=== PATIENT | female | born 1985 | race Caucasian/White ===

== ENCOUNTER 2017-05-21 12:47 | Outpatient (CLI) | payer OTHER | END 2017-05-21 12:48 | disposition home or self-care (01) | LOC: DTY/OP 12:47 | PROVIDERS: ATTEND Specialist | DX: Z01.818 Encounter for other preprocedural examination (principal); E66.01 Morbid (severe) obesity due to excess calories | CPT/HCPCS: 97802 ==

== ENCOUNTER 2017-06-25 12:00 | Inpatient (IN) | payer OTHER ==
--- NOTE | 2017-06-24 17:08 | HP ---
HISTORY OF PRESENT ILLNESS: The patient is a 32-year-old female who works at the [employer] lifting up to 75 pounds with team lifts, has been desired weight loss sustainable for some time. She has at tended our recent bariatric seminar and is interested in laparoscopic sleeve gastrectomy and well inf ormed about the merits, risks, benefits of both laparoscopic sleeve gastrectomy and Carlee-en-Y gastric bypass. She is 5 feet and 8, 227 pounds, 34.5 BMI. On 01/2017, she weighed 265 pounds and since at time has been running and changing her dietary habits and has lost from 265 to 227 pounds. Her go al is 150 pounds. She has been overweight most of her life and in preparation for enlisting into the army. She lost down to 150-155 pounds, but began having children, gained her weight back and now re alizes to enjoy sustainable weight loss efforts she will need surgical assistance. She has good expe ctations. Plan is to have her see our dietitian regarding education for perioperative and long-term dietary changes regarding sleeve gastrectomy. See the psychologist and obtain baseline laboratories. The patient has sleep apnea, has been tested to the and is on CPAP at night, compliant with that. She has chronic low back pain. There is no history of sciatica. She has had physical therapy , has had a recent MRI and has seen a therapist again. ALLERGIES: None. TOBACCO: Cessation in 2014. Her does not smoke. ALCOHOL: None. MEDICATIONS: None routinely. PAST SURGICAL HISTORY: Cholecystectomy in 2012, in 2010. PAST MEDICAL HISTORY: Sleep apnea, chronic low back pain, morbid obesity. She is followed by for primary care. PHYSICAL EXAMINATION: VITAL SIGNS: As stated above, on 01/2017, she weighed 265 pounds. Currently, she is 5 foot 8, 68 in ches, weight 227 pounds, 34.5 BMI, 110/73, 62, 98.6 degrees. HEAD, EARS, EYES, NOSE, AND THROAT: Unremarkable. LUNGS: Clear to auscultation. CARDIAC: Regular rate and rhythm without murmur or gallop. ABDOMEN: Soft, nontender, no masses. EXTREMITIES: Unremarkable, no venous stasis changes, no history of DVT, no history of anticoagulants use. Neurologically intact. No lymphadenopathy in neck, axillae or groins. No ankle edema. ASSESSMENT AND PLAN: 1. Morbid obesity, body mass index 35, 227 pounds, 5 foot 8 inches, she did weight 265 pounds in Jan. She has tried numerous other weight loss efforts without durable results. Plan is for laparo scopic sleeve gastrectomy after psychology evaluation and dietary counseling. She understands the ri sk and benefits of procedure and consents. 2. Sleep apnea. 3. Chronic low back pain.
[2017-06-25 10:55] VITALS: BMI 31.9
--- NOTE | 2017-06-26 08:19 | ADD-HP ---
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 She is attending our recent bariatric seminar, interested in laparoscopic sleeve gastre ctomy when informed about the risk and benefits as well as a bariatric options. She is 5 feet 8 inch es, 227 pounds, 34.5 BMI (35 BMI when I first saw her now lost down to 210 pounds, 31 BMI going throu gh our bariatric preoperative program). Her goal was 150 pounds. She has been overweight most of he r life and in preparation for enlisting to the [employer], she lost down to 150 to 155 pounds, but began rivera ving children, gained weight back and now realizes to enjoy sustainable weight loss however she will need surgical assistance. She has good expectations and has done well preoperatively. She has seen the psychologist and cleared deemed to be a very good patient with good outlook. The patient has sle ep apnea is on CPAP at night, compliant with that. She has less problems with that since losin g the weight in preparation for sleeve gastrectomy. She has chronic low back pain without history of sciatica. ALLERGIES: None. TOBACCO: Cessation in 2014. does not smoke. ALCOHOL: None. PAST SURGICAL HISTORY: Cholecystectomy in 2012, in 2010. PAST MEDICAL HISTORY: Sleep apnea, chronic back pain, morbid obesity. REVIEW OF SYSTEMS: Ten-point noncontributory. PHYSICAL EXAMINATION: VITAL SIGNS: Weight 210 pounds, blood pressure 109/77, pulse 66; 34.5 BMI initially, now 31.9 BMI. She has lost 17 pounds accounting for 20% of her excess body weight loss, beginning weight 227 pounds , 34 BMI, currently 210 pounds, 31 BMI. HEENT: Sclerae nonicteric. NECK: Without lymphadenopathy. LUNGS: Clear to auscultation. CARDIAC: Regular rate and rhythm without murmur, rub, or gallop. ABDOMEN: Soft, nontender, no hernias. EXTREMITIES: Unremarkable. No venous stasis changes in axillae or groins. SKIN: Nonjaundiced. NEUROLOGIC: Intact. No focal deficits. ASSESSMENT: Morbid obesity, successful preoperative weight loss. PLAN: Laparoscopic sleeve gastrectomy next week. She understands the risk and benefits and consents .
[2017-06-29] MEDS ORDERED: Ketorolac Tromethamine 30 MG/ML VIAL ONE (06:11)
[2017-06-29] MEDS ORDERED: Scopolamine 1.5 mg/72 hour Patch ONE (06:11)
[2017-06-29] MEDS ORDERED: Heparin 5,000 UNITS/ML VIAL ONE (06:11)
[2017-06-29] MEDS ORDERED: cefOXitin 2 GM in Sodium Chloride 0.9% 100 ML IVPB SCH (06:15)
[2017-06-29] MEDS ORDERED: Fentanyl 250 MCG/5 ML VIAL ONE (06:36)
[2017-06-29] MEDS ORDERED: Bupivacaine/Epinephrine 0.25% 30 ML VIAL ONE (06:45)
[2017-06-29] MEDS ORDERED: Midazolam HCl 2 mg/2 ml Vial ONE (07:02)
[2017-06-29] MEDS ORDERED: Ondansetron HCl/PF 4 MG/2 ML Vial IVP PRN ×2 (08:57→09:08)
[2017-06-29] MEDS ORDERED: Acetaminophen 325 MG/10.15 ML UDCUP PO PRN (08:57)
[2017-06-29] MEDS ORDERED: Dextrose 5% in Water 1,000 ML IV PRN (08:57)
[2017-06-29] MEDS ORDERED: hydrALAZINE 20 MG/ML VIAL SLOW IVP PRN (08:57)
[2017-06-29] MEDS ORDERED: Hydrocodone-Acetamin 15 ML UDCUP PO PRN (08:57)
[2017-06-29] MEDS ORDERED: diphenhydrAMINE 50 MG/ML VIAL IVP PRN (08:57)
[2017-06-29] MEDS ORDERED: Morphine 4 MG/ML VIAL SLOW IVP PRN ×2 (08:57)
[2017-06-29] MEDS ORDERED: Dextrose 50% Abboject 50 ML SYRINGE SLOW IVP PRN (08:57)
[2017-06-29] MEDS ORDERED: Acetaminophen 1,000 MG in Premix Bag 1 BAG IVPB PRN (09:05)
[2017-06-29] MEDS ORDERED: Meperidine HCl/PF 25 MG/ML VIAL SLOW IVP PRN (09:08)
[2017-06-29] MEDS ORDERED: Promethazine HCl 25 MG/ML VIAL IM PRN (09:08)
[2017-06-29] MEDS ORDERED: Promethazine HCl 25 MG/ML VIAL SLOW IVP PRN (09:08)
[2017-06-29] MEDS ORDERED: Fentanyl 100 MCG/2 ML VIAL ONE ×2 (09:37→10:24)
--- NOTE | 2017-06-29 11:05 | OP ---
DATE OF SERVICE: 06/29/2017 PREOPERATIVE DIAGNOSES: Morbid obesity, 220 pounds, 34 BMI recently presenting preoperative bariatri c surgery perforation, 210 pounds, 31 BMI; sleep apnea; low back pain, chronic. POSTOPERATIVE DIAGNOSES: Morbid obesity, 220 pounds, 34 BMI recently presenting preoperative bariatr ic surgery perforation, 210 pounds, 31 BMI; sleep apnea; low back pain, chronic. PROCEDURE: Laparoscopic sleeve gastrectomy, 36-Honduran bougie, staple line within 4 cm of the pylorus , completion upper endoscopy visualizing the pylorus. SURGEON: Dr. Odilon Hernandez. ANESTHESIA: General, local 0.25% Marcaine with epinephrine, 60 mL. Clips placed on the staple line for hemostasis. PROCEDURE IN DETAIL: The patient was taken to the operating room where under general anesthesia in t he supine position, abdomen was prepared with ChloraPrep, draped in routine fashion. Local anestheti c infiltrated into skin and subcutaneous tissue about the operative site. Supraumbilical incision ma de. Pneumoperitoneum to 15 mmHg obtained with the Veress needle, replacing it with a 5 port and vide o laparoscope inserted. Bilateral far lateral subcostal incision made and 5 ports placed. Bilateral subcostal upper abdominal incisions made on the left, a 15-mm port placed; on the right, a 12-mm por t placed; and bilateral far lateral subcostal 5-mm port was placed. Subxiphoid incision made and the obturator from the 5-mm port placed under laparoscopic visualization of the abdominal cavity and a N rodanson liver retractor inserted, reflecting left lobe of liver anteriorly. The patient placed reve rsed Trendelenburg. Gastrocolic ligament taken down adjacent to the greater curvature of the stomach up to the angle of His. Dissection of the left crura revealed absence of a hiatal hernia. Within 4 cm of the pylorus, the gastrocolic ligament was taken down on the greater curvature. A 36-bougie pl aced by Anesthesia orally under laparoscopic visualization directed down towards the pylorus. Serial fires of the Endo-COURTNEY stapler performed, initially green load, then gold load, and then subsequent 4 blue load staplers fired, taking care to avoid narrowing the incisura. Staple line angle up towards the angle of His, staying clear of the angle of His, leaving a small amount of fundus staying away f rom the esophagus. Serial fires of stapler divided the stomach completely, and removed from the 15 m m port site left upper quadrant and the area irrigated, and a GraNee needle used to place a 0 Vicryl [id number] suture and the 15 mm port replaced. The stomach inspected, staple line hemostasis ga ined with clips. Endoscope placed per os under direct visualization and passed throughout the esopha reji into the stomach, visualizing the pylorus, withdrawing endoscope noting intact staple line withou t bleeding or leaks. Visualization of the sleeve revealed it was of good quality and there was no bl eeding. Irrigant and pneumoperitoneum evacuated. Liver appeared to be normal. All instruments briana tonja and all skin incisions are approximated with interrupted subdermal 4-0 Monocryl and DermaGlue zack lied.
[2017-06-29] MEDS ORDERED: Dexamethasone 20 MG/5 ML VIAL ONE (11:06)
[2017-06-29] MEDS ORDERED: Lidocaine 1% PF 5 ML VIAL ONE (11:06)
[2017-06-29] MEDS ORDERED: Propofol 200 MG/20 ML VIAL ONE (11:06)
[2017-06-29] MEDS ORDERED: Ondansetron HCl/PF 4 MG/2 ML Vial ONE (11:06)
[2017-06-29] MEDS ORDERED: Glycopyrrolate 0.2 MG/ML 5 ML SYRINGE ONE (11:06)
[2017-06-29] MEDS: Ketorolac Tromethamine 30 MG/ML VIAL IVP SCH ×2 (12:55→17:05)
[2017-06-29] MEDS: 1/2 NS w/KCL 20 mEq 1,000 ML IV SCH ×2 (14:08→17:06)
[2017-06-29] MEDS: Pantoprazole 40 MG VIAL IVP SCH (14:09)
[2017-06-29] MEDS: Acetaminophen 1,000 MG in Premix Bag 1 BAG IVPB SCH (20:20)
[2017-06-29] MEDS ORDERED: Enoxaparin Sodium 40 MG/0.4 ML SYRINGE SC SCH (21:00)
[2017-06-30] MEDS: Ketorolac Tromethamine 30 MG/ML VIAL IVP SCH ×2 (01:09→06:02)
[2017-06-30] MEDS: Acetaminophen 1,000 MG in Premix Bag 1 BAG IVPB SCH ×2 (01:10→09:18)
[2017-06-30] MEDS: 1/2 NS w/KCL 20 mEq 1,000 ML IV SCH (01:13)
[2017-06-30 05:41] LABS: #Monocytes 0.8 thou/uL (0.11-0.59); #Neutrophils 9.9 thou/uL (1.40-6.50); %Basophils 0.2 % (0.0-1.0); %Lymphocytes 21.7 % (21.0-51.0); %Monocytes 5.6 % (0.0-10.0); %Neutrophils 72.5 % (42.0-75.0); Hemoglobin 13.6 g/dL (12.0-16.0); Mean Corpuscular HGB CONC 33.4 g/dL (32.0-36.0); Mean Corpuscular Hemoglobin 30.2 pg (27.0-31.0); Mean Corpuscular Volume 90.3 fl (81.0-99.0); Mean Platelet Volume 7.3 fL (7.4-10.4); Platelet Count 354 thou/uL (130-400); RBC Distribution Width 11.6 % (11.5-14.5); Red Blood Cell (RBC) Count 4.51 mill/uL (4.20-5.40); White Blood Cell (WBC) Count 13.7 thou/uL (4.8-10.8)
[2017-06-30 06:07] LABS: Anion Gap 11 mmol/L (10-20); BUN (Urea Nitrogen) 12 mg/dL (7.0-18.7); Calc. Creatinine Clearance 138 mL/min (70-130); Calcium 9.3 mg/dL (7.8-10.44); Carbon Dioxide 24 mmol/L (22-29); Chloride 105 mmol/L (98-107); Estimated GFR-MDRD 74; Glucose 83 mg/dL (70-105); Potassium 4.2 mmol/L (3.5-5.1); Sodium 136 mmol/L (136-145)
[2017-06-30] MEDS ORDERED: Acetaminophen 500 MG TAB PO PRN ×2 (08:00→12:00)
[2017-06-30 08:24] VITALS: BP 132/76; TEMP 98.6
[2017-06-30] MEDS: Pantoprazole 40 MG VIAL IVP SCH (09:17)
--- NOTE | 2017-06-30 10:00 | PRG ---
DATE OF SERVICE: 06/30/2017 SUBJECTIVE: Ms. Lizbeth Londono is doing well today. She has not had any nausea or vomiting. She is t olerating liquids. OBJECTIVE: VITAL SIGNS: 98.6 degrees, 51, 132/76. LUNGS: Clear to auscultation. CARDIAC: Regular rate and rhythm without murmur or gallop. ABDOMEN: Soft, nontender. Surgical wounds look good. LABORATORY DATA AND IMAGING: White count is 13, hemoglobin 13. Basic metabolic profile is normal th is morning. No swallow study was done this morning. ASSESSMENT: The patient is doing well post-bariatric surgery, sleeve gastrectomy. PLAN: Discharge home on bariatric liquids and advance per protocol. Follow up in my office per surg sabrina date. Tylenol [id number], Ultram as needed for pain, Lortab Elixir prescription given, alt melisa she does not think she will need it.
--- NOTE | 2017-06-30 10:05 | DIS ---
DATE OF ADMISSION: 06/29/2017 DATE OF DISCHARGE: 06/30/2017 DISCHARGE DIAGNOSES: 1. Morbid obesity. 2. Sleep apnea. Initial evaluation 220 pounds, 34 BMI. She prepared for surgery, 210 pounds, 31 BMI. Comorbidities; sleep apnea, low back pain. PROCEDURES THIS HOSPITALIZATION: Laparoscopic sleeve gastrectomy over 36 Chinese bougie, staple line within 4 cm of the pylorus, completion upper endoscopy. No swallow study done. HISTORY: A 32-year-old female undergoing preoperative evaluation of her bariatric program, [facility] all requirements, undergoing the above procedure. Postoperatively, tolerating her diet, bariatric liquids and was sent home with Lortab elixir as needed for pain, although she does not think she will feel it. She is taking Tylenol [id number] for her discomfort. She will follow up in my offic e in 1-2 weeks. Postoperative labs were normal.
[2017-06-30] MEDS ORDERED: Hydrocodone-Acetamin 15 ML UDCUP PO PRN (12:00)
[2017-06-30] MEDS ORDERED: Acetaminophen 325 MG/10.15 ML UDCUP PO PRN (12:00)
== END 2017-06-30 12:43 | disposition home or self-care (01) | DRG 621 ==
LOC: SURG A 06-29 05:51
PROVIDERS: ADMIT Specialist; ATTEND Specialist
PROC: 0DB64Z3 Excision of Stomach, Percutaneous Endoscopic Approach, Vertical (ICD-10-PCS; principal; 2017-06-29)
DX: E66.01 Morbid (severe) obesity due to excess calories (principal); G47.30 Sleep apnea, unspecified; Z87.891 Personal history of nicotine dependence; G89.29 Other chronic pain; M54.5 Low back pain; Z68.31 Body mass index [BMI] 31.0-31.9, adult
CPT/HCPCS: 36415; 80048; 85025; 88307; 88312; C9113; J0131; J0694; J1100; J1644; J1650; J1885; J2001; J2250; J2270; J2405; J2704; J3010; J7050